=== PATIENT | female | born 1945 | race Caucasian/White ===

== ENCOUNTER → 2017-03-09 | Outpatient (CLI) | payer MEDICARE, BC ==
--- NOTE | 2017-03-09 15:04 | WOMENS IMAGING REPORT ---
EXAM DESCRIPTION: BONE DENSITY HIP/SPINE COMPLETED DATE/TIME: 03/09/2017 1:10 pm REASON FOR STUDY: OTHER PRIMARY OVARIAN FAILURE; E28.39 E28.39 OTHER PRIMARY OVARIAN FAILURE Z12.31 ENCNTR SCREEN MAMMOGRAM FOR MALIGNANT NEOPLASM OF BRANDAN COMPARISON: None. TECHNIQUE: Dual-Energy X-ray Absorptiometry (DEXA) of the AP Spine and Hip. LIMITATIONS: None. FINDINGS: LUMBAR SPINE: The bone mineral density (BMD) measured from L1-L4 in the AP projection correlates with a T-score of -2.2, which is osteopenia as defined by the World Health Organization. HIP: The bone mineral density (BMD) measured in the right hip hip correlates with a T-score of -2.5 in the femoral neck and -2.9 for the total hip, which is osteoporosis as defined by the World Health Organi zation. IMPRESSION: 1. LUMBAR SPINE: OSTEOPENIA. 2. HIP: OSTEOPOROSIS. COMMENT: The World Health Organization defines low BMD as follows: T-score: Normal: Greater than -1.0 Osteopenia: Between -1.0 and -2.5 Osteoporosis: Less than -2.5 without fractures Established osteoporosis: Less than -2.5 with fractures In general, you may wish to consider: Diagnosis Treatment Follow-up DEXA Normal BMD Prevention 2-3 years Osteopenia Prevention/Therapy 1-2 years Osteoporosis Therapy Yearly TECHNICAL DOCUMENTATION: JOB ID: [id number] [employer]- All Rights Reserved
== END ==
LOC: WI 09:14
PROVIDERS: ATTEND Physician Assistant
DX: E28.39 Other primary ovarian failure (principal); M81.0 Age-related osteoporosis without current pathological fracture
CPT/HCPCS: 77080

== ENCOUNTER 2018-05-04 08:34 | Emergency (ER) | payer MEDICARE, BC ==
[2018-05-04 08:41] VITALS: BP 150/61
[2018-05-04] MEDS ORDERED: CLINDAMYCIN HCL 150 MG CAPSULE PO ONE (09:42)
--- NOTE | 2018-05-04 09:48 | ER Document Report ---
ED Extremity Problem, Lower - General Chief Complaint: Leg Pain Stated Complaint: RT LEG INFLAMATION Time Seen by Provider: 05/04/18 09:36 Mode of Arrival: Ambulatory Information source: Patient Notes: Patient complains of right lower leg redness for the past 5 days. She denies fever, chills, nausea, vomiting, chest pain, shortness of breath, abdominal pain or headache. Patient is not a diabetic. She has history of hypoglycemic episodes. TRAVEL OUTSIDE OF THE [place] IN LAST 30 DAYS: No - HPI Patient complains to provider of: Other - Redness Location: Leg Occurred: Other - 5 days Where: Home Onset/Duration: Gradual Quality of pain: No pain Severity: Mild Pain Level: 1 Recent injury: No Exacerbated by: Nothing Relieved by: Nothing - Related Data Allergies/Adverse Reactions: No Known Allergies Allergy (Verified 05/04/18 08:35) Past Medical History - Social History Smoking Status: Never Smoker Family History: Reviewed & Not Pertinent Patient has suicidal ideation: No Patient has homicidal ideation: No - Past Medical History Cardiac Medical History: Denies: Hx Heart Attack, Hx Hypertension Pulmonary Medical History: Denies: Hx Asthma, Hx Tuberculosis Neurological Medical History: Denies: Hx Cerebrovascular Accident, Hx Seizures Renal/ Medical History: Denies: Hx Peritoneal Dialysis GI Medical History: Reports: Hx Ulcer. Denies: Hx Hepatitis, Hx Hiatal Hernia Musculoskeletal Medical History: Reports Hx Arthritis Traumatic Medical History: Reports: Hx Fractures - left arm Infectious Medical History: Denies: Hx Hepatitis Past Surgical History: Reports: Hx Hysterectomy, Hx Orthopedic Surgery - hip surgery, Hx Tubal Ligation. Denies: Hx Mastectomy, Hx Open Heart Surgery, Hx Pacemaker - Immunizations Hx Diphtheria, Pertussis, Tetanus Vaccination: No Hx Pneumococcal Vaccination: 06/23/08 Review of Systems - Review of Systems Constitutional: denies: Chills, Fever EENT: No symptoms reported Cardiovascular: denies: Chest pain, Palpitations Respiratory: denies: Cough, Short of breath Gastrointestinal: No symptoms reported Genitourinary: No symptoms reported Female Genitourinary: No symptoms reported Musculoskeletal: denies: Back pain, Joint pain, Joint swelling Skin: Change in color, Rash, Other - Right leg redness Hematologic/Lymphatic: No symptoms reported Neurological/Psychological: No symptoms reported -: Yes All other systems reviewed and negative Physical Exam - Vital signs Vitals: Temp Pulse Resp BP Pulse Ox 98.2 F 70 16 150/61 H 97 05/04/18 08:40 05/04/18 08:40 05/04/18 08:40 05/04/18 08:40 05/04/18 08:40 - General General appearance: Appears well, Alert In distress: None - HEENT Head: Normocephalic, Atraumatic Eyes: Normal Conjunctiva: Normal Cornea: Normal Pupils: PERRL - Respiratory Respiratory status: No respiratory distress Chest status: Nontender Breath sounds: Normal Chest palpation: Normal - Cardiovascular Rhythm: Regular Heart sounds: Normal auscultation Murmur: No - Abdominal Inspection: Normal Distension: No distension Bowel sounds: Normal Tenderness: Nontender Organomegaly: No organomegaly - Back Back: Normal, Nontender - Extremities General upper extremity: Normal inspection General lower extremity: Other - Right lower leg redness consistent with cellulitis. Shoulder: Normal Arm: Normal Elbow: Normal Forearm: Normal Wrist: Normal Hand: Normal Hip: Normal Thigh: Normal Knee: Normal Calf: Normal Ankle: Normal Foot: Normal - Neurological Neuro grossly intact: Yes Cognition: Normal Orientation: AAOx4 Mallory Coma Scale Eye Opening: Spontaneous Nneka Coma Scale Verbal: Oriented Nneka Coma Scale Motor: Obeys Commands Nneka Coma Scale Total: 15 Speech: Normal Motor strength normal: LUE, RUE, LLE, RLE Sensory: Normal - Psychological Associated symptoms: Normal affect, Normal mood - Skin Skin Temperature: Warm Skin Moisture: Dry Skin Color: Marcelo, Ecchymosis Skin Turgor: Elastic Skin irregularity: Erythema Location of irregularity: Extremities - Right lower leg Character of irregularity: Maculopapular Irregularity with: Warmth, Inflammation Course - Vital Signs Vital signs: Temp Pulse Resp BP Pulse Ox 98.2 F 70 16 150/61 H 97 05/04/18 08:40 05/04/18 08:40 05/04/18 08:40 05/04/18 08:40 05/04/18 08:40 - Transfer of Care Notes: 05/04/18 09:54 Cellulitis. Discharge - Discharge Clinical Impression: Cellulitis of right lower extremity without foot Condition: Stable Disposition: HOME, SELF-CARE Instructions: Cellulitis ([facility]) Additional Instructions: Please follow-up with her primary doctor in the next 2-3 days. Return to the emergency room if her condition worsens. Prescriptions: Clindamycin HCl 300 mg PO TID #30 capsule Ondansetron [Zofran Odt 4 mg Tablet] 4 mg PO TID PRN #12 tab.rapdis PRN Reason: nausea and vomiting Referrals: CAMERON WEIR PA-C [Primary Care Provider] - Follow up as needed
== END 2018-05-04 09:55 | disposition home or self-care (01) ==
LOC: ER 08:34
DX: L03.115 Cellulitis of right lower limb (principal)
CPT/HCPCS: 99283; 82962; A9270

== ENCOUNTER → 2018-06-09 | Day surgery (SDC) | payer MEDICARE, BC ==
[~2018-06-09] MED LIST: BESIFLOXACIN HCL 0.6% OPH SUSP 5 ML BOTTLE OD PRN; BUPIVACAINE HCL 0.75% INJ/PF (7.5 MG/1 ML) 10 ML SDV OD PRN; CHONDR SU A NA/HYALUR INTRAOC KIT (SURGICARE) ONE; EPINEPHRINE INJ/PF 1 MG/1 ML AMPULE ONE; KETOROLAC TROMETHAMINE 0.45% 4 DROP/0.4 ML DROPERETTE OD PRN; LIDOCAINE 1% INJ-PF (10 MG/ML) 30 ML SDV ONE; LIDOCAINE 4% INJ/PF (40 MG/ML) 5 ML AMPUL OD PRN; TETRACAINE HCL 0.5% OPH SOLN 0.6 ML DROPERETTE OD PRN
[2018-06-09] MEDS: CYCLOPENTOLATE 0.2%/PHENYLEPHRINE 1% OPH SOLN 2 ML OD PRN ×2 (06:55→07:05)
[2018-06-09] MEDS: TROPICAMIDE 1% OPH SOLN 3 ML OD PRN ×2 (06:55→07:05)
== END ==
LOC: SC 06:36
PROVIDERS: ATTEND Ophthalmology
DX: R69 Illness, unspecified (principal)
CPT/HCPCS: J0171; J3490

== ENCOUNTER 2018-06-12 11:42 | Emergency (ER) | payer MEDICARE, BC ==
[2018-06-12] MEDS ORDERED: RINGERS SOLUTION,LACTATED 1,000 ML IV ONE (12:03)
--- NOTE | 2018-06-12 12:05 | ER Document Report ---
ED Medical Screen (RME) - General Chief Complaint: Diarrhea Stated Complaint: DIARRHEA Time Seen by Provider: 06/12/18 11:51 TRAVEL OUTSIDE OF THE [place] IN LAST 30 DAYS: No - HPI Patient complains to provider of: Diarrhea Onset: Other - 3 weeks of diarrhea after having been treated with clindamycin for cellulitis. Was started on Lomotil 2 weeks ago without improvement and then has been on Flagyl for 2 days without any improvement in her symptoms. Denies any abdominal pain but does have crampy symptoms. - Related Data Allergies/Adverse Reactions: No Known Allergies Allergy (Verified 06/09/18 06:50) Past Medical History - Social History Chew tobacco use (# tins/day): No Frequency of alcohol use: None Drug Abuse: None - Past Medical History Cardiac Medical History: Reports: Hx Hypertension Denies: Hx Heart Attack Pulmonary Medical History: Denies: Hx Asthma, Hx Tuberculosis Neurological Medical History: Denies: Hx Cerebrovascular Accident, Hx Seizures Renal/ Medical History: Denies: Hx Peritoneal Dialysis GI Medical History: Denies: Hx Hepatitis, Hx Hiatal Hernia, Hx Ulcer Musculoskeltal Medical History: Reports Hx Arthritis Traumatic Medical History: Reports: Hx Fractures - left arm Infectious Medical History: Denies: Hx Hepatitis Past Surgical History: Reports: Hx Abdominal Surgery - tummy tuck, Hx Hysterectomy, Hx Orthopedic Surgery - l hip/alicia knee, Hx Tubal Ligation. Denies : Hx Mastectomy, Hx Open Heart Surgery, Hx Pacemaker - Immunizations Hx Diphtheria, Pertussis, Tetanus Vaccination: No Physical Exam - Vital signs Vitals: Temp Pulse Resp BP Pulse Ox 98.1 F 78 18 137/64 H 97 06/12/18 11:47 06/12/18 11:47 06/12/18 11:47 06/12/18 11:47 06/12/18 11:47 Course - Re-evaluation Re-evalutation: 73-year-old female with a past medical history of 3 weeks of diarrhea in the setting of having been treated with clindamycin for a cellulitis last month. She has had recurrent watery diarrhea without any improvement in her symptoms. We will initiate workup including C. difficile assay, CBC CMP and lipase. 06/12/18 12:03 I have greeted and performed a rapid initial assessment of this patient. A comprehensive ED assessment and evaluation of the patient, analysis of test results and completion of the medical decision making process will be conducted by additional ED providers - Vital Signs Vital signs: Temp Pulse Resp BP Pulse Ox 98.1 F 78 18 137/64 H 97 06/12/18 11:47 06/12/18 11:47 06/12/18 11:47 06/12/18 11:47 06/12/18 11:47 Doctor's Discharge - Discharge Referrals: LEBRON FRANKLIN PA-C [Primary Care Provider] - Follow up as needed
[2018-06-12 13:05] LABS: ABSOLUTE LYMPHOCYTES (AUTO) 1.3 10^3/uL (0.5-4.7); ABSOLUTE MONOCYTES (AUTO) 0.9 10^3/uL (0.1-1.4); ABSOLUTE NEUT (AUTO) 7.6 10^3/uL (1.7-8.2); BASOPHILS % (AUTO) 0.2 % (0-2); EOSINOPHILS % (AUTO) 0.5 % (0-6); HEMATOCRIT 34.1 % (36.0-47.0); HEMOGLOBIN 11.8 g/dL (12.0-15.5); LYMPHOCYTES % (AUTO) 12.8 % (13-45); MEAN CORPUSCULAR HEMOGLOBIN 32.1 pg (27.0-33.4); MEAN CORPUSCULAR HGB CONC 34.6 g/dL (32.0-36.0); MEAN CORPUSCULAR VOLUME 93 fl (80-97); MONOCYTES % (AUTO) 9.2 % (3-13); PLATELET COUNT 421 10^3/uL (150-450); RED BLOOD COUNT 3.68 10^6/uL (3.72-5.28); SEGMENTED NEUTROPHILS % (AUTO) 77.3 % (42-78); TOTAL CELLS COUNTED % (AUTO) 100 %; WHITE BLOOD COUNT 9.8 10^3/uL (4.0-10.5)
[2018-06-12 13:18] LABS: ALANINE AMINOTRANSFERASE 28 U/L (9-52); ALKALINE PHOSPHATASE 67 U/L (38-126); ANION GAP 7 (5-19); ASPARTATE AMINO TRANSFERASE 24 U/L (14-36); BILIRUBIN,DIRECT 0.4 mg/dL (0.0-0.4); BILIRUBIN,TOTAL 0.6 mg/dL (0.2-1.3); BLOOD UREA NITROGEN 12 mg/dL (7-20); CALCIUM 8.9 mg/dL (8.4-10.2); CARBON DIOXIDE 30 mmol/L (22-30); CHLORIDE 100 mmol/L (98-107); GLUCOSE 106 mg/dL (75-110); LIPASE 66.7 U/L (23-300); POTASSIUM 4.2 mmol/L (3.6-5.0); SODIUM 136.9 mmol/L (137-145); TOTAL PROTEIN 5.7 g/dL (6.3-8.2)
--- NOTE | 2018-06-12 13:49 | ER Document Report ---
ED General - General Chief Complaint: Diarrhea Stated Complaint: DIARRHEA Time Seen by Provider: 06/12/18 11:51 Mode of Arrival: Ambulatory Information source: Patient Notes: 73 year old female presents to the emergency department with complaints of diarrhea x 3 weeks. Patient says that she was initially started on clindamycin for cellulitis. She was then given cipro for UTI diagnosis. Patient says that within 2 days of being on the cipro she started having diarrhea. She followed up with her PCP 5 days ago for the diarrhea and was told she had a "bacterial" infection and was started on flagyl. Patient has been using lomotil without relief. Denies abdominal pain, nausea, vomiting. TRAVEL OUTSIDE OF THE [place] IN LAST 30 DAYS: No - HPI Onset: Other - 3 weeks Onset/Duration: Sudden Quality of pain: No pain Severity: None Pain Level: Denies - Related Data Allergies/Adverse Reactions: No Known Allergies Allergy (Verified 06/09/18 06:50) Past Medical History - General Information source: Patient - Social History Smoking Status: Never Smoker Chew tobacco use (# tins/day): No Frequency of alcohol use: None Drug Abuse: None Family History: Reviewed & Not Pertinent Patient has suicidal ideation: No Patient has homicidal ideation: No - Past Medical History Cardiac Medical History: Reports: Hx Hypertension Denies: Hx Heart Attack Pulmonary Medical History: Denies: Hx Asthma, Hx Tuberculosis Neurological Medical History: Denies: Hx Cerebrovascular Accident, Hx Seizures Renal/ Medical History: Denies: Hx Peritoneal Dialysis GI Medical History: Denies: Hx Hepatitis, Hx Hiatal Hernia, Hx Ulcer Musculoskeletal Medical History: Reports Hx Arthritis Traumatic Medical History: Reports: Hx Fractures - left arm Infectious Medical History: Denies: Hx Hepatitis Past Surgical History: Reports: Hx Abdominal Surgery - tummy tuck, Hx Hysterectomy, Hx Orthopedic Surgery - l hip/alicia knee, Hx Tubal Ligation. Denies : Hx Mastectomy, Hx Open Heart Surgery, Hx Pacemaker - Immunizations Hx Diphtheria, Pertussis, Tetanus Vaccination: No Hx Pneumococcal Vaccination: 06/23/08 Review of Systems - Review of Systems Constitutional: No symptoms reported EENT: No symptoms reported Cardiovascular: No symptoms reported Respiratory: No symptoms reported Gastrointestinal: Diarrhea Genitourinary: No symptoms reported Female Genitourinary: No symptoms reported Musculoskeletal: No symptoms reported Skin: No symptoms reported Hematologic/Lymphatic: No symptoms reported Neurological/Psychological: No symptoms reported -: Yes All other systems reviewed and negative Physical Exam - Vital signs Vitals: Temp Pulse Resp BP Pulse Ox 98.1 F 78 18 137/64 H 97 06/12/18 11:47 06/12/18 11:47 06/12/18 11:47 06/12/18 11:47 06/12/18 11:47 - General Notes: PHYSICAL EXAMINATION: GENERAL: Well-appearing, well-nourished and in no acute distress. HEAD: Atraumatic, normocephalic. EYES: Pupils equal round and reactive to light, extraocular movements intact, conjunctiva are normal. ENT: Nares patent, oropharynx clear without exudates. Moist mucous membranes. NECK: Normal range of motion, supple without lymphadenopathy LUNGS: Breath sounds clear to auscultation bilaterally and equal. No wheezes rales or rhonchi. HEART: Regular rate and rhythm without murmurs ABDOMEN: Soft, nontender, nondistended abdomen. No guarding, no rebound. No masses appreciated. Female : deferred Musculoskeletal: Normal range of motion, no pitting or edema. No cyanosis. NEUROLOGICAL: Cranial nerves grossly intact. Normal speech, normal gait. Normal sensory, motor exams PSYCH: Normal mood, normal affect. SKIN: Warm, Dry, normal turgor, no rashes or lesions noted. Course - Re-evaluation Re-evalutation: 06/12/18 15:46 Vitals stable. Labs obtained. WBC is normal. C. diff positive. Will start oral Vancomycin. Patient instructed to take the medication as directed, to follow up with PCP this week, and to return for worsening symptoms. - Vital Signs Vital signs: Temp Pulse Resp BP Pulse Ox 98.1 F 78 18 137/64 H 97 06/12/18 11:47 06/12/18 11:47 06/12/18 11:47 06/12/18 11:47 06/12/18 11:47 - Laboratory Result Diagrams: 06/12/18 12:40 06/12/18 12:40 Laboratory results interpreted by me: 06/12/18 06/12/18 06/12/18 12:40 12:40 14:02 RBC 3.68 L Hgb 11.8 L Hct 34.1 L Lymphocytes % 12.8 L Sodium 136.9 L Total Protein 5.7 L Albumin 3.0 L Urine Blood LARGE H Ur Leukocyte Esterase SMALL H Discharge - Discharge Clinical Impression: Clostridium difficile diarrhea Condition: Good Disposition: HOME, SELF-CARE Instructions: C. (Clostridium) Difficile Infection ([facility]) Prescriptions: Vancomycin HCl 125 mg PO QID #40 capsule Referrals: LEBRON FRANKLIN PA-C [Primary Care Provider] - Follow up as needed
[2018-06-12 14:40] LABS: APPEARANCE,URINE SLIGHTLY-CLOUDY; BILIRUBIN,URINE NEGATIVE (NEGATIVE); COLOR,URINE AMBER; GLUCOSE, URINE NEGATIVE (NEGATIVE); KETONES,URINE NEGATIVE (NEGATIVE); LEUKOCYTE ESTERASE,URINE SMALL (NEGATIVE); NITRITE,URINE NEGATIVE (NEGATIVE); PROTEIN,URINE NEGATIVE (NEGATIVE); URINE SPECIFIC GRAVITY 1.015; UROBILINOGEN,URINE NEGATIVE mg/dL (<2.0)
[2018-06-12 16:07] VITALS: BP 153/71
== END 2018-06-12 16:07 | disposition home or self-care (01) ==
LOC: ER 11:42
DX: A04.72 Enterocolitis due to Clostridium difficile, not specified as recurrent (principal); I10 Essential (primary) hypertension
CPT/HCPCS: 99284; 96360; 36415; 83605; 83690; 85025; 80053; 81001; 87493; J7120

== ENCOUNTER 2018-10-04 06:46 | Day surgery (SDC) | payer MEDICARE, BC ==
[~2018-10-04 06:46] MED LIST changes: -BESIFLOXACIN HCL 0.6% OPH SUSP 5 ML BOTTLE OD PRN; -CHONDR SU A NA/HYALUR INTRAOC KIT (SURGICARE) ONE; -EPINEPHRINE INJ/PF 1 MG/1 ML AMPULE ONE; -LIDOCAINE 1% INJ-PF (10 MG/ML) 30 ML SDV ONE; -TETRACAINE HCL 0.5% OPH SOLN 0.6 ML DROPERETTE OD PRN
[2018-10-04] MEDS: TETRACAINE HCL 0.5% OPH SOLN 0.6 ML DROPERETTE OD PRN ×2 (07:10→07:45)
[2018-10-04] MEDS: BESIFLOXACIN HCL 0.6% OPH SUSP 5 ML BOTTLE OD PRN ×4 (07:10→08:25)
[2018-10-04] MEDS: TROPICAMIDE 1% OPH SOLN 3 ML OD PRN ×3 (07:10→07:35)
[2018-10-04] MEDS: CYCLOPENTOLATE 0.2%/PHENYLEPHRINE 1% OPH SOLN 2 ML OD PRN ×3 (07:10→07:35)
[2018-10-04] MEDS ORDERED: MIDAZOLAM 2 MG/2 ML INJ ONE (07:39)
[2018-10-04] MEDS ORDERED: FENTANYL CITRATE INJ/PF 100 MCG/2 ML AMPUL ONE (07:40)
[2018-10-04] MEDS: LIDOCAINE 1% INJ-PF (10 MG/ML) 30 ML SDV ONE ×2 (08:10)
[2018-10-04] MEDS: CHONDR SU A NA/HYALUR INTRAOC KIT (SURGICARE) ONE ×2 (08:10)
[2018-10-04] MEDS: EPINEPHRINE INJ/PF 1 MG/1 ML AMPULE ONE ×2 (08:10)
[2018-10-04] MEDS: DORZOLAMIDE HCL 2%/TIMOLOL MALEAT 0.5% OPH SOLN 10 ML OD PRN ×2 (08:25)
--- NOTE | 2018-10-04 10:57 | [facility] DISCHARGE SUMMARY E ---
[facility] Discharge Summary NAME: REUBEN RENEE AGE: 73Y ADMITTED: 10/04/2018 DISCHARGED: 10/04/2018 HOSPITAL COURSE: The patient is a 73-year-old lady who underwent uneventful cataract extraction with intraocular lens implant right eye on 10/04/2018. She will discharged to home. She is instructed to resume preoperative medications, to take Tylenol as needed for discomfort, to keep her eye shielded, to use Durezol, Ilevro, and Besivance at 3 p.m. and 8 p.m., and to follow up in my office in 1 day. DICTATING PHYSICIAN: CLARENCE SALAS M.D. [id number] PHY#: [id number] ID: [id number] JOB#: [id number] ACCT: [id number] cc:CLARENCE SALAS M.D. >
--- NOTE | 2018-10-04 10:57 | [facility] OPERATIVE REPORT E ---
[facility] Operative Report NAME: REUBEN RENEE AGE: 73Y DATE OF SURGERY: 10/04/2018 ROOM: PREOPERATIVE DIAGNOSIS: Cataract, right eye. POSTOPERATIVE DIAGNOSIS: Cataract, right eye. PROCEDURE PERFORMED: Phacoemulsification with posterior chamber intraocular lens, right eye. SURGEON: CLARENCE SALAS M.D. ANESTHESIA: Topical with MAC. INDICATIONS FOR SURGERY: Difficulty reading small print and words on TV. PROCEDURE: The patient was brought to the Operating Room and placed on the operative table. Following tetracaine drops, topical anesthesia was administered. This consisted of instrument wipe pledgets soaked in a solution of 4% Xylocaine mixed with 0.75% Marcaine in a 1:2 ratio. A 2 x 1 cm pledget was placed in the superior fornix. A 1 x 1 cm pledget was placed in the inferior fornix. The eye was patched shut for 5 minutes. The patch was removed. The eye was sterilely prepped and draped in the usual manner. Lid speculum was placed in the eye. The pledgets were removed. 4-0 black silk sutures were placed around the superior and the inferior rectus muscles to be used as traction. A conjunctival peritomy was made at the 10 o'clock position. Hemostasis was obtained with bipolar cautery. A posterior limbal groove was created using a crescent knife and dissected anteriorly towards the cornea. A sharp point blade was used to create a paracentesis site at the 2 o'clock position. A 2.4 mm keratome was used to enter the anterior chamber through the groove. Viscoelastic was injected into the anterior chamber. An anterior capsulotomy was performed using Utrata forceps in a capsulorrhexis fashion. Hydrodissection and hydrodelineation were performed. Phacoemulsification was performed in [id number] technique. A total of 6.46 CDE phaco time was used. Following this, the I/A unit was used to remove residual cortex. Viscoelastic was injected into the capsular bag. Intraocular lens model [id number], 19.0 diopters, serial number [id number] was placed in the capsular bag. The I/A unit was used to remove residual viscoelastic. The wound was seen to be watertight under high and low pressure, and no sutures were placed. The intraocular lens was well centered. The pressure was adjusted in the eye to normal pressure. The 4-0 black silk sutures and lid speculum were removed. The eye was shielded after Besivance drops were placed. The patient tolerated the procedure well and was sent to the Recovery Room in good condition. A drop of Cosopt was placed at the end of the surgery. DICTATING PHYSICIAN: CLARENCE SALAS M.D. [id number] PHY#: [id number] ID: [id number] JOB#: [id number] ACCT: [id number] cc:CLARENCE SALAS M.D. >
== END 2018-10-04 09:09 | disposition home or self-care (01) ==
LOC: SC 06:46
PROVIDERS: ATTEND Ophthalmology
DX: H25.11 Age-related nuclear cataract, right eye (principal); H20.012 Primary iridocyclitis, left eye; H43.812 Vitreous degeneration, left eye; H52.4 Presbyopia; I10 Essential (primary) hypertension; Z79.899 Other long term (current) drug therapy; Z88.6 Allergy status to analgesic agent
CPT/HCPCS: 66984; V2632; J2250; J3490 ×4; A9270; J0171; J3010; 142